=== PATIENT | male | born 1985 | race Caucasian/White ===

== ENCOUNTER 2021-04-15 17:04 | Emergency (ER) | payer OTHER ==
[2021-04-15 17:11] VITALS: BP 115/69; PULSE 60; TEMP 98.2; BMI 28.3
[2021-04-15] MEDS ORDERED: LIDOCAINE 2.5%/PRILOCAINE 2.5% (5 Gram/TUBE) TP ONE (18:00)
== END 2021-04-15 18:50 | disposition home or self-care (01) ==
LOC: JERFT 17:04
PROC: 0JQ10ZZ Repair Face Subcutaneous Tissue and Fascia, Open Approach (ICD-10-PCS; principal; 2021-04-15)
DX: S01.01XA Laceration without foreign body of scalp, initial encounter (principal); W25.XXXA Contact with sharp glass, initial encounter; Y92.9 Unspecified place or not applicable
CPT/HCPCS: 99283-25

== ENCOUNTER 2021-04-22 13:06 | Emergency (ER) | payer OTHER ==
[2021-04-22 13:14] VITALS: BP 109/73; PULSE 64; TEMP 97.8; BMI 27.8
== END 2021-04-22 13:47 | disposition home or self-care (01) ==
LOC: JERFT 13:06
DX: Z48.02 Encounter for removal of sutures (principal)
CPT/HCPCS: 99281-25